=== PATIENT | female | born 1985 | race Caucasian/White ===

== ENCOUNTER 2022-02-27 14:22 | Emergency (ER) | payer OTHER | END 2022-02-27 17:35 | disposition home or self-care (01) | LOC: JP.ED 14:22 | DX: S93.401A Sprain of unspecified ligament of right ankle, initial encounter (principal); Z79.82 Long term (current) use of aspirin; X50.1XXA Overexertion from prolonged static or awkward postures, initial encounter; Y93.02 Activity, running | CPT/HCPCS: 73610-26-RT; 73610-RT; 99281; 99284-25 ==